=== PATIENT | female | born 1955 ===

== ENCOUNTER 2018-08-17 15:46 | Emergency (ER) | payer MEDICAID, OTHER ==
[2018-08-17 15:48] VITALS: BP 155/90; PULSE 74; RESP 16; TEMP 98.6; O2SAT 99
[2018-08-17 15:49] VITALS: BMI 30.2
--- NOTE | 2018-08-17 17:19 | ED PDOC ---
HPI: Eye Injury/Pain Time Seen by Provider: 08/17/18 17:00 Chief Complaint (Nursing): Eye Problem Chief Complaint (Provider): Eye Problem History Per: Patient History/Exam Limitations: no limitations Onset/Duration Of Symptoms: Days Current Symptoms Are (Timing): Still Present Additional Complaint(s): 63 y/o female presents to the ED for evaluation of left eye pain. History obtained using [employer] physician coder #[id number]. Patient reports of going to the ER last week for evaluation of redness to the right eye and was told her blood vessels burst. Patient states the same has happened to the left eye. Patient presents today concerned of symptoms. Otherwise, patient denies recent illness, constipation and vision changes. Patient states she is able to see but is irritated. PMD: no provider Past Medical History Reviewed: Historical Data, Nursing Documentation, Vital Signs Vital Signs: Last Vital Signs Temp 98.6 F 08/17/18 15:48 Pulse 74 08/17/18 15:48 Resp 16 08/17/18 15:48 BP 155/90 H 08/17/18 15:48 Pulse Ox 99 08/17/18 15:48 - Medical History PMH: No Chronic Diseases - Surgical History Surgical History: No Surg Hx - Family History Family History: States: Unknown Family Hx - Allergies Allergies/Adverse Reactions: Allergies Allergy/AdvReac Type Severity Reaction Status Date / Time No Known Allergies Allergy Verified 06/21/13 11:53 Review of Systems ROS Statement: Except As Marked, All Systems Reviewed And Found Negative Eyes: Positive for: Conjunctivae Inflammation, Redness Physical Exam - Reviewed Nursing Documentation Reviewed: Yes Vital Signs Reviewed: Yes - Physical Exam Appears: Positive for: No Acute Distress Eye Exam: Positive for: Conjunctival injection (bilaterally) - ECG O2 Sat by Pulse Oximetry: 99 (RA) Pulse Ox Interpretation: Normal Medical Decision Making Medical Decision Making: Time: 1709 Impression: Subconjunctiva hemorrhage. Plan: -- Supportive care -- Patient advised that due to the subconjunctiva hemorrhage, the body may take up to two weeks to heal itself. Patient additionally advised to follow up with PMD for slightly elevated blood pressure. Scribe Attestation: Documented by Mone Red, acting as a scribe for Jameson Ruiz PA-C. Provider Scribe Attestation: All medical record entries made by the Scribe were at my direction and personally dictated by me. I have reviewed the chart and agree that the record accurately reflects my personal performance of the history, physical exam, medical decision making, and the department course for this patient. I have also personally directed, reviewed, and agree with the discharge instructions and disposition. Disposition - Clinical Impression Clinical Impression: Subconjunctival hemorrhage of both eyes - Patient ED Disposition Is Patient to be Admitted: No Doctor Will See Patient In The: Office Counseled Patient/Family Regarding: Studies Performed, Diagnosis - Disposition Disposition: Routine/Home Disposition Time: 17:25 Condition: STABLE Additional Instructions: Follow up with PMD concerning subconjunctivial hemorrhage and slightly elevated blood pressure Instructions: Subconjunctival Hemorrhage Forms: [facility] (Tajik), [facility] (Guyanese) Print Language: [id number]
== END 2018-08-17 17:47 | disposition home or self-care (01) ==
LOC: H.ER 15:46
DX: H11.33 Conjunctival hemorrhage, bilateral (principal)